=== PATIENT | male | born 1985 | race African-American/Black ===

== ENCOUNTER 2024-04-26 12:25 | Emergency (ER) | payer OTHER ==
[~2024-04-26] VITALS: Ht 188 cm; Wt 85.0 kg
[2024-04-26 13:20] VITALS: TEMP 98.4
[2024-04-26] MEDS ORDERED: FLUO-342 PO (13:31)
[2024-04-26] MEDS ORDERED: RISP0.5T80 PO (13:31)
[2024-04-26] MEDS: ACETAMINOPHEN 500 MG TABLET PO ONE (13:44)
[2024-04-26] MEDS ORDERED: ACETAMINOPHEN 500 MG TABLET PO ONE (15:15)
[2024-04-26 15:20] VITALS: BP 136/83; PULSE 92; RESP 16
[2024-04-26] MEDS: TraMADol HCL 50 MG TABLET PO ONE (15:32)
== END 2024-04-26 15:43 ==
LOC: EMS 12:25
DX: S20.212A Contusion of left front wall of thorax, initial encounter (principal); S05.12XA Contusion of eyeball and orbital tissues, left eye, initial encounter; F31.9 Bipolar disorder, unspecified; F20.9 Schizophrenia, unspecified; W22.8XXA Striking against or struck by other objects, initial encounter; Y93.89 Activity, other specified; Y92.89 Other specified places as the place of occurrence of the external cause; Y99.8 Other external cause status
CPT/HCPCS: 70450; 70486; 71250; 72125; 99284